=== PATIENT | male | born 1955 | race Caucasian/White ===

== ENCOUNTER 2018-05-05 09:24 | Outpatient (CLI) | payer OTHER, SELFPAY ==
[2018-05-05] VITALS (9 sets, daily range): BP systolic 119–150; BP diastolic 72–89; PULSE 66–76; RESP 16–18; TEMP 36.4; O2SAT 95–98
--- NOTE | 2018-05-05 09:28 | DI.RAD.S_ITS ---
PROCEDURE: PAIN L/S FACET INJ/BLK 1ST BREN COMPARISON: None. INDICATIONS: SPONDYLOSIS FINDINGS: 6 intraoperative fluoroscopy images demonstrate needle placement in the area of left and right L3-L4 facet joints. There is surgical fusion at L4-L5-S1. IMPRESSION: Fluoroscopy for pain management. Dictated by: Severiano Chen M.D. on 05/05/2018 at 10:41 Approved by: Severiano Chen M.D. on 05/05/2018 at 10:44
[2018-05-05] MEDS: MIDAZOLAM 5 MG/5 ML VIAL IV (10:10)
[2018-05-05] MEDS: LIDOCAINE 1% 20 ML INJ 10 ML INJ (10:14)
[2018-05-05] MEDS: BUPIVACAINE 0.5% (PF) VIAL 2 ML INJ (10:15)
[2018-05-05] MEDS: IOPAMIDOL 15 ML VIAL 3 ML INJ (10:15)
[2018-05-05] MEDS: BETAMETHASONE 30 MG/5 ML MDV 12 MG INJ (10:15)
--- NOTE | 2018-05-05 10:18 | PC.NURSE ---
ASSISTING PT OFF TABLE AND TRANSPORTING PT TO POST PROC AREA IN STABLE CONDITION
--- NOTE | 2018-05-05 10:24 | P.PCN_ITS ---
Procedures Date/Time Date of procedure: 05/05/18 Time of procedure: 10:22 General Procedure description: PREOP DIAGNOSIS 1. FACET ARTHROPATHY 2. AXIAL LBP 3. MULTILEVEL DDD POST OP DIAGNOSIS 1. FACET ARTHROPATHY 2. AXIAL LBP 3. MULTILEVEL DDD PROCEDURES 1. FLUORSCOPICALLY GUIDED CONTRAST CONTROLLED FACET JOINT INJECTIONS BILATERAL L3/4, L4/5 PHYSICIAN: Josiah Ybarra DO INDICATIONS: Sami is referred for treatment of Axial LBP s/p lumbar fusion. FINDINGS Multilevel Facet Arthropathy with Clinically significant axial LBP DESCRIPTION OF PROCEDURE Fluoroscopically guided, contrast-controlled bilateral L3/4 facet joint injections. Following denial of allergy and review of potential side effects and complications, including, but not necessarily limited to, infection, allergic reaction, local tissue breakdown, stroke, temporary or permanent nerve injury, paralysis, and possible , the patient indicated that the patient understood and agreed to proceed. An informed consent document was signed by the patient, witnessed by a nurse, and placed in the patient's chart. Additionally, other treatment options including medications, modalities, and physical therapy were reviewed with the patient. After review of previous anaesthesic history and IV conscious sedation the patient was deemed safe to proceed with todays procedure with IV conscious sedation as ASA class II designation. Safety time-out was performed to confirm patient ID, procedure to be performed and site of procedure. IV sedation was accomplished with a combination of 3mg of Versed was administered by the RN after DO order, titrated to patient comfort during the course of the procedure while the patient remained responsive to all verbal commands. In the prone position, following sterile prep and drape of the lumbar region, the posterior aspect of the L3/4 facet joints were identified fluoroscopically. The skin was anesthetized via a 25-gauge 1.5-inch needle with 1% lidocaine solution into the corresponding facet joints. At this point, a 22-gauge 3.5- inch spinal needle was atraumatically introduced and advanced under fluoroscopic guidance into the corresponding facet joints. Following negative aspiration, injections of approximately 0.2-cc of Isovue 200 confirmed interarticular placement without vascular uptake. The identical procedure was then performed at the L3/4 facet joints on the left. Radiological data, including multiple fluoroscopic views of the lumbosacral spine, reveal a spinal needle at the L3/4 facet joints bilaterally. Subsequent views show flow of contrast material both superiorly and inferiorly within the joint space without vascular or intrathecal uptake. At this point, a total of 0.5 cc including a mixture of 0.25 cc Marcaine and 0.25 cc betamethasone was injected without complication into each of the corresponding facet joints. The patient tolerated the procedure well without signs or symptoms of complications prior to transfer to the recovery area continued monitoring without incident. The patient was then transferred to the recovery area where they were observed for an appropriate period of time after the injection. The patient reported a VAS score of 7 prior to the procedure and a post-procedure VAS of 0. Total Fluoroscopy Time: 20.3 seconds Total Conscious Sedation Time: 24min POST OP INSTRUCTIONS The patient was provided a Pain Log to continue to record their response to the target-specific procedure prior to follow-up visit with their referring physician. Additionally, specific post-injection care instructions and a contact number to our office were provided if concerns arise regarding possible complications associated with the procedure are suspected. Josiah Ybarra, Complications: none
--- NOTE | 2018-05-05 11:03 | PC.NURSE ---
pt returned via wheelchair from post procedure, awake and alert, able to move from W/C to chair on own, resumed monitoring from Silvia COLINDRES.
--- NOTE | 2018-05-06 16:34 | PC.NURSE ---
FOLLOW UP CALL MADE. PT STATES MY BACK FEELS GREAT. DENIES QUESTIONS/CONCERNS. I ASKED HIM TO CONTINUE TO DOCUMENT PAIN ON HIS PAIN LOG AND REMINDED HIM THAT THE CLINIC NUMBER IS ON THE BACK OF THE PAIN LOG, SHOULD QUESTIONS/CONCERNS ARISE. HE VERBALIZED UNDERSTANDING OF INSTRUCTIONS.
== END 2018-05-05 11:03 ==
LOC: RAD 09:26
PROVIDERS: Visit Provider Physical Medicine & Rehabilitation
DX: M47.816 Spondylosis without myelopathy or radiculopathy, lumbar region (principal); M47.817 Spondylosis without myelopathy or radiculopathy, lumbosacral region; M54.5 Low back pain; M51.36 Other intervertebral disc degeneration, lumbar region; Z98.1 Arthrodesis status
CPT/HCPCS: 64493; 99152; J0702; J2250

== ENCOUNTER 2018-07-29 09:49 | Outpatient (CLI) | payer OTHER, SELFPAY ==
[2018-07-29] VITALS (10 sets, daily range): BP systolic 111–160; BP diastolic 52–82; PULSE 57–66; RESP 16–18; TEMP 36.5; O2SAT 97–100
--- NOTE | 2018-07-29 09:51 | DI.RAD.S_ITS ---
PROCEDURE: PAIN L/S MED/LAT N RFA BILAT INDICATIONS: SPONDYLOSIS FINDINGS: Fluoroscopic spot filming was performed to verify placement of spinal needles at the bilateral L3 and 4 level(s), as labeled on the films. Appropriate location(s) of the needle tip(s) was confirmed by injection of iodinated contrast. IMPRESSION: Bilateral L3 and L4 needle tip positioning for medial branch block procedures (4 total). Dictated by: Jaquan Uriarte M.D. on 07/29/2018 at 14:22 Approved by: Jaquan Uriarte M.D. on 07/29/2018 at 14:23
[2018-07-29] MEDS: MIDAZOLAM 5 MG/5 ML VIAL IV (11:21)
[2018-07-29] MEDS: fentaNYL 100 MCG/2 ML INJ 50 MCG IV (11:21)
[2018-07-29] MEDS: BETAMETHASONE 30 MG/5 ML MDV 12 MG INJ (11:40)
[2018-07-29] MEDS: LIDOCAINE 1% 20 ML INJ 10 ML INJ (11:41)
[2018-07-29] MEDS: BUPIVACAINE 0.5% (PF) VIAL 2 ML INJ (11:41)
--- NOTE | 2018-07-29 11:53 | PC.NURSE ---
ASSISTING PT OFF TABLE AND TRANSPORTING TO POST PROC AREA IN STABLE CONDITION
--- NOTE | 2018-07-29 12:02 | P.PCN_ITS ---
Procedures Date/Time Date of procedure: 07/29/18 Time of procedure: 12:01 General Procedure description: PREOP DIAGNOSIS 1. RECALCITRANT FACET ARTHROPATHY, POST OP DIAGNOSIS 1. RECALCITRANT FACET ARTHROPATHY PROCEDURES 1. BILATERAL L3, L4 MEDIAL BRANCH RADIOFREQUENCY NEUROTOMY PHYSICIAN: Josiah Ybarra DO INDICATIONS: Sami is referred for treatment of facet arthropathy. DESCRIPTION OF PROCEDURE Bilateral L3, L4 medial branch radiofrequency neurotomy The patient is well known to this clinic having undergone previous facet injections with good but temporary relief. The patient has experienced appropriate, concordant relief with previous facet and median branch blocks but the patient's pain has been recalcitrant to further conservative measures. Therefore, based upon the patient's relief and persistent symptoms, the patient is considered an appropriate candidate for facet rhizotomy. All of the patient's questions regarding the risks versus benefits of the procedure, including, but not limited to, bleeding, infection, temporary as well as lasting nerve injury, paralysis, stroke, and , as well treatment alternatives were answered to satisfaction. After obtaining informed consent, denial of pertinent drug allergies, as well as being made aware of the potential risks of bleeding, infection, spinal cord trauma, paralysis, temporary and permanent nerve damage, seizure, stroke, and possible , the patient was brought to the fluoroscopy suite and positioned prone on the fluoroscopy table. The lumbar region was prepped with Betadine and covered with a fenestrated drape in the usual sterile fashion. Appropriate monitors applied including pulse oximeter, pulse, and blood pressure for regular monitoring throughout the procedure. After review of previous anaesthesic history and IV conscious sedation the patient was deemed safe to proceed with todays procedure with IV conscious sedation as ASA class II designation. Safety time-out was performed to confirm patient ID, procedure to be performed and site of procedure. IV sedation was accomplished with a combination of 3mg of Versed and 50mcg of Fentanyl administered by the RN after DO order, titrated to patient comfort during the course of the procedure while the patient remained responsive to all verbal commands. After local infiltration using 1% lidocaine, under fluoroscopic guidance, a 10- cm RF insulated needle with a 10-mm active tip was positioned parallel to the junction of the right the superior articulating process where the L3 medial branch resides. Needle placement was confirmed with sensory stimulation at 50 Hz, with motor stimulation of .5v on the right which produced local stimulation without radicular component. The stimulation was then increased to 1.5v with, once again, only local multifidus stimulation without radicular component. This was then followed by two discreet lesions performed at 80 degrees Celsius for 90 seconds each. The needle was then removed and the identical procedure was performed along the length of the right L4 medial branch with motor stimulation at .7v on the right. The identical procedures were repeated on the left. The patient tolerated the procedure well without signs or symptoms of complications prior to transfer to the recovery area continued monitoring without incident. The patient was then transferred to the recovery area where they were observed for an appropriate period of time after the injection. The patient reported a VAS score of 9 prior to the procedure and a post-procedure VAS of 0. Total Fluoroscopy Time: 22.7 seconds Total Conscious Sedation Time: 34min POST OP INSTRUCTIONS The patient was provided a Pain Log to continue to record the patient's response to the target-specific procedure prior to the patient's follow-up visit with the referring physician. Additionally, specific post-injection care instructions and a contact number to our office were provided if concerns arise regarding possible complications associated with the procedure are suspected. Josiah Ybarra, Complications: none
--- NOTE | 2018-07-29 12:08 | PC.NURSE ---
pt returned post procedure awake and alert. Pt able to move from W/C to chair with standby assist. Resumed monitoring from Silvia COLINDRES.
== END 2018-07-29 12:32 ==
LOC: RAD 09:50
PROVIDERS: Visit Provider Physical Medicine & Rehabilitation
DX: M47.817 Spondylosis without myelopathy or radiculopathy, lumbosacral region (principal); M47.816 Spondylosis without myelopathy or radiculopathy, lumbar region; M48.061 Spinal stenosis, lumbar region without neurogenic claudication; Z98.1 Arthrodesis status
CPT/HCPCS: 64635; 99152; 99153; J0702; J2250; J3010

== ENCOUNTER → 2018-09-23 08:57 | Outpatient (CLI) | payer OTHER, SELFPAY ==
--- NOTE | 2018-09-23 08:58 | DI.MRI.S_ITS ---
PROCEDURE: MR LUMBAR SPINE WO CON INDICATIONS: lumbar spine pain TECHNIQUE: Noncontrast sagittal T1 spin echo and T2 fast echo, sagittal STIR, axial T1 and T2 fast spin echo through the lumbar spine. In cases with scoliosis, additional coronal T2 fast spin echo may be performed. COMPARISON: None. FINDINGS: Image quality: The lower lumbar spine is obscured by susceptibility artifact. Alignment and Curvature: There is minimal retrolisthesis seen at the L2-L3 level. Mild retrolisthesis is seen at L3-L4. Bone Marrow: Marrow is of normal overall signal. No acute vertebral body compression fractures. Spinal Cord: Conus medullaris terminates at the L1 level. Visualized cord demonstrates normal signal and size. Paraspinous Soft Tissues: No paravertebral masses. Postoperative changes are seen, with bilateral pedicle screws at the L4, L5, and S1 levels. Vertical fixation rods are seen. There is associated susceptibility artifact. T12-L1: Normal appearance. L1-L2: The disc height is well-preserved. Loss of disc signal is seen at this level. Mild to moderate generalized disc bulge is seen. Moderate facet joint hypertrophy is seen. Mild central canal narrowing is seen. L2-L3: The disc height is well-preserved. Loss of disc signal is seen at this level. Moderate generalized disc bulge is seen. Mild to moderate facet hypertrophy is seen. Moderate bilateral neural foraminal narrowing is seen. Moderate central canal narrowing is seen. L3-L4: At least moderate loss of disc height and disc signal are seen. Moderate disc bulge is seen. There is moderate to severe bilateral neural foraminal narrowing seen. There is a degree of compression seen upon the exiting nerve roots. Moderate to severe central canal narrowing is seen. L4-L5: Moderate to severe loss of disc height and disc signal are seen. At least moderate disc bulge is seen. There is moderate to severe left-sided and mild right-sided neural foraminal narrowing. Mild central canal narrowing is seen. L5-S1: Moderate to severe loss of disc height is seen. [id number] disc bulge is seen. There is likely moderate bilateral neural foraminal narrowing. Mild central canal narrowing is seen. IMPRESSION: Lower lumbar spine postoperative change, with associated susceptibility artifact, limiting evaluation Multiple levels of lumbar spine degenerative change are seen, which are most prominent at L3-L4. Dictated by: Kalin Phelps M.D. on 09/23/2018 at 8:51 Approved by: Kalin Phelps M.D. on 09/23/2018 at 8:58
== END ==
PROVIDERS: Visit Provider Physical Medicine & Rehabilitation
DX: M54.5 Low back pain (principal); M47.816 Spondylosis without myelopathy or radiculopathy, lumbar region; M47.817 Spondylosis without myelopathy or radiculopathy, lumbosacral region; M48.061 Spinal stenosis, lumbar region without neurogenic claudication; M48.07 Spinal stenosis, lumbosacral region
CPT/HCPCS: 72148

== ENCOUNTER 2018-10-01 12:41 | Outpatient (CLI) | payer OTHER, SELFPAY ==
[2018-10-01] VITALS (9 sets, daily range): BP systolic 133–157; BP diastolic 80–95; PULSE 57–68; RESP 16; TEMP 36.3; O2SAT 96–98
--- NOTE | 2018-10-01 12:43 | DI.RAD.S_ITS ---
PROCEDURE: PAIN L/S TRANSFORAMINAL INJECT INDICATIONS: SPONDYLOSIS FINDINGS: Fluoroscopic spot filming was performed to verify placement of spinal needles at the L3-L4 level(s), as labeled on the films. Appropriate location(s) of the needle tip(s) was confirmed by injection of iodinated contrast. Dictated by: Gilberto Skelton M.D. on 10/02/2018 at 10:12 Approved by: Gilberto Skelton M.D. on 10/02/2018 at 10:13
[2018-10-01] MEDS: fentaNYL 100 MCG/2 ML INJ 50 MCG IV (14:10)
[2018-10-01] MEDS: MIDAZOLAM 5 MG/5 ML VIAL IV (14:10)
--- NOTE | 2018-10-01 14:16 | PC.NURSE ---
pt tolerated procedure well. Pt able to get off table with standby assist. Transferred pt via wheelchair to pre procedure room awake and alert for continued monitoring with Silvia COLINDRES.
--- NOTE | 2018-10-01 14:24 | P.PCN_ITS ---
Procedures Date/Time Date of procedure: 10/01/18 Time of procedure: 14:22 General Procedure description: POST OP DIAGNOSIS 1. HNP WITH RADICULAR FEATURES, 2. MULTILEVEL CENTRAL STENOSIS, PROCEDURES 1. FLUORSCOPICALLY GUIDED CONTRAST CONTROLLED INTERLAMINAR EPIDURAL STEROID INJECTION - L3/4 PHYSICIAN: Josiah Ybarra, DO INDICATIONS Sami is referred for treatment of HNP with Foraminal Stenosis L>R LE symptoms. FINDINGS Multilevel Central Spinal Stenosis with Nerve Root Compression DESCRIPTION OF PROCEDURE Fluoroscopically guided, contrast-controlled L3/4 translaminar epidural steroid injection. Following review of allergy and review of potential side effects and complications, including, but not necessarily limited to, infection, allergic reaction, local tissue breakdown, temporary as well as permanent nerve injury, paralysis, stroke and possible , the patient indicated that the patient understood and agreed to proceed. An informed consent document was signed by the patient, witnessed by a nurse, and placed in the patient's chart. Additionally, other treatment options including modalities, medications, and physical therapy were reviewed with the patient. After review of previous anaesthesic history and IV conscious sedation the patient was deemed safe to proceed with todays procedure with IV conscious sedation as ASA class II designation. Safety time-out was performed to confirm patient ID, procedure to be performed and site of procedure. IV sedation was accomplished with a combination of 3mg of Versed and 50mcg of Fentanyl was administered by the RN after DO order, titrated to patient comfort during the course of the procedure while the patient remained responsive to all verbal commands. In the prone position, following sterile prep and drape of the lumbar region, the L3/4 translaminar space was identified fluoroscopically. The skin was anesthetized via a 25-gauge, 1.5-inch needle with 1% lidocaine solution. At this point, a 22-gauge short bevel spinal needle was atraumatically introduced and advanced under fluoroscopic guidance into the region of the L3/4 translaminar space. Depth was confirmed on lateral view. Radiological data, including multiple fluoroscopic views of the lumbar spine, reveal a spinal needle at the L3/4 translaminar space. Lateral views then show placement of the needle in the epidural space. Subsequent views show contrast material flowing superiorly and inferiorly in the epidural space. No vascular or intrathecal uptake is observed. At this point, using loss of resistance technique with saline and air, the epidural space was entered. This was confirmed following negative aspiration with injection of approximately 1.5 cc of Isovue 200, showing excellent epidural flow without vascular or intrathecal uptake. At this point, 1 cc of 1% lid ocaine solution combined with 3cc or 18mg of dexamethasone was injected without incident. The patient tolerated the procedure well without signs or symptoms of complications prior to transfer to the recovery area continued monitoring without incident. The patient was then transferred to the recovery area where they were observed for an appropriate period of time after the injection. The patient reported a VAS score of 6 prior to the procedure and a post- procedure VAS of 0. Total Fluoroscopy Time: 11.8 seconds Total Conscious Sedation Time: 24min POST OP INSTRUCTIONS The patient was provided a Pain Log to continue to record their response to the target-specific procedure prior to follow-up visit with their referring physician. Additionally, specific post-injection care instructions and a contact number to our office were provided if concerns arise regarding possible complications associated with the procedure are suspected. Josiah Ybarra, Complications: none
[2018-10-01] MEDS: IOPAMIDOL 15 ML VIAL 3 ML INJ (14:26)
--- NOTE | 2018-10-01 14:26 | PC.NURSE ---
ACCEPTED CARE OF PT IN POST PROC AREA IN STABLE CONDITION
[2018-10-01] MEDS: BETAMETHASONE 30 MG/5 ML MDV 12 MG INJ (14:27)
[2018-10-01] MEDS: BUPIVACAINE 0.25% (PF) VIAL 2 ML INJ (14:31)
== END 2018-10-01 14:49 | disposition home or self-care (01) ==
LOC: RAD 12:42
PROVIDERS: Visit Provider Physical Medicine & Rehabilitation
DX: M51.16 Intervertebral disc disorders with radiculopathy, lumbar region (principal); M48.061 Spinal stenosis, lumbar region without neurogenic claudication
CPT/HCPCS: 64483; 99152; J0702; J2250; J3010

== ENCOUNTER 2019-06-21 09:03 | Outpatient (CLI) | payer MEDICARE, SELFPAY ==
[2019-06-21] VITALS (8 sets, daily range): BP systolic 127–156; BP diastolic 69–94; PULSE 52–66; RESP 16–17; TEMP 36.4; O2SAT 96–98
--- NOTE | 2019-06-21 09:06 | DI.RAD.S_ITS ---
PROCEDURE: PAIN L/S FACET INJ/BLK 1ST BREN COMPARISON: [facility], , PAIN L/S FACET INJ/BLK 1ST BREN, 05/05/2018, 10:11. INDICATIONS: SPONDYLOSIS FINDINGS: Fluoroscopic spot filming was performed to verify placement of spinal needles at the L2-L3 level(s), as labeled on the films. Appropriate location(s) of the needle tip(s) was confirmed by injection of iodinated contrast. As: Dictated by: Gilberto Skelton M.D. on 06/21/2019 at 13:50 Approved by: Gilberto Skelton M.D. on 06/21/2019 at 13:51
[2019-06-21] MEDS: MIDAZOLAM 5 MG/5 ML VIAL IV (10:42)
[2019-06-21] MEDS: fentaNYL 100 MCG/2 ML INJ 50 MCG IV (10:44)
[2019-06-21] MEDS: BUPIVACAINE 0.5% (PF) VIAL 2 ML INJ (10:46)
[2019-06-21] MEDS: IOPAMIDOL 15 ML VIAL 3 ML INJ (10:46)
[2019-06-21] MEDS: BETAMETHASONE 30 MG/5 ML MDV 12 MG INJ (10:46)
--- NOTE | 2019-06-21 10:50 | PC.NURSE ---
ASSISTING PT OFF TABLE AND TRANSPORTING TO POST PROC AREA IN STABLE CONDITION. PASSING RN CARE OF PT OFF TO NOAH Avery RN.
--- NOTE | 2019-06-21 10:52 | P.PCN_ITS ---
Procedures Date/Time Date of procedure: 06/21/19 Time of procedure: 10:53 General Procedure description: PREOP DIAGNOSIS 1. FACET ARTHROPATHY 2. AXIAL LBP 3. MULTILEVEL DDD POST OP DIAGNOSIS 1. FACET ARTHROPATHY 2. AXIAL LBP 3. MULTILEVEL DDD PROCEDURES 1. FLUORSCOPICALLY GUIDED CONTRAST CONTROLLED FACET JOINT INJECTIONS BILATERAL L2/3 PHYSICIAN: Josiah Ybarra DO INDICATIONS: Sami is referred by Dr. Hickey for treatment of Axial LBP FINDINGS Multilevel Facet Arthropathy with Clinically significant axial LBP DESCRIPTION OF PROCEDURE Fluoroscopically guided, contrast-controlled bilateral L2/3 facet joint injections. Following review of allergy and review of potential side effects and complications, including, but not necessarily limited to, infection, allergic reaction, local tissue breakdown, stroke, temporary or permanent nerve injury, paralysis, and possible , the patient indicated that the patient understood and agreed to proceed. An informed consent document was signed by the patient, witnessed by a nurse, and placed in the patient's chart. Additionally, other treatment options including medications, modalities, and physical therapy were reviewed with the patient. After review of previous anaesthesic history and IV conscious sedation the patient was deemed safe to proceed with todays procedure with IV conscious sedation as ASA class II designation. Safety time-out was performed to confirm patient ID, procedure to be performed and site of procedure. IV sedation was accomplished with a combination of 2mg of Versed and 50mcg of Fentanyl was administered by the RN after DO order, titrated to patient comfort during the course of the procedure while the patient remained responsive to all verbal commands. In the prone position, following sterile prep and drape of the lumbar region, t he posterior aspect of the L2/3 facet joints were identified fluoroscopically. The skin was anesthetized via a 25-gauge 1.5-inch needle with 1% lidocaine solution into the corresponding facet joints. At this point, a 22-gauge 3.5- inch spinal needle was atraumatically introduced and advanced under fluoroscopic guidance into the corresponding facet joints. Following negative aspiration, injections of approximately 0.2-cc of Isovue 200 confirmed interarticular placement without vascular uptake. The identical procedure was then performed at the L2/3 facet joints on the left. Radiological data, including multiple fluoroscopic views of the lumbosacral spine, reveal a spinal needle at the L2/3 facet joints bilaterally. Subsequent views show flow of contrast material both superiorly and inferiorly within the joint space without vascular or intrathecal uptake. At this point, a total of 0.5cc including a mixture of 0.25cc Marcaine and 0.25cc betamethasone was injected without complication into each of the corresponding facet joints. The patient tolerated the procedure well without signs or symptoms of complications prior to transfer to the recovery area continued monitoring with out incident. The patient was then transferred to the recovery area where they were observed for an appropriate period of time after the injection. The patient reported a VAS score of 7 prior to the procedure and a post-procedure VAS of 0. Total Fluoroscopy Time: 11 seconds Total Conscious Sedation Time: 24min POST OP INSTRUCTIONS The patient was provided a Pain Log to continue to record their response to the target-specific procedure prior to follow-up visit with their referring physician. Additionally, specific post-injection care instructions and a contact number to our office were provided if concerns arise regarding possible complications associated with the procedure are suspected. Josiah Ybarra, Complications: none
--- NOTE | 2019-06-21 10:57 | PC.NURSE ---
1100: Received patient post procedure via WC by Silvia COLINDRES. Awake, alert, and pleasant. VSS upon arrival, up out of WC to chair, steadily.
--- NOTE | 2019-06-22 11:58 | PC.NURSE ---
FOLLOW UP CALL MADE. PT STATED I FEEL GREAT. DENIED QUESTIONS/CONCERNS. REMINDED PT TO CONTINUE WITH PAIN LOG AND OF CLINIC NUMBER OF BACK IF HE NEEDS TO CONTACT US BEFORE HIS FOLLOW UP. PT VERBALIZED UNDERSTANDING.
== END 2019-06-21 11:15 | disposition home or self-care (01) ==
LOC: RAD 09:05
PROVIDERS: PCP Family Medicine; Referring Provider Family Medicine; Visit Provider Physical Medicine & Rehabilitation
DX: M47.816 Spondylosis without myelopathy or radiculopathy, lumbar region (principal); M51.36 Other intervertebral disc degeneration, lumbar region; M54.5 Low back pain
CPT/HCPCS: 64493; 64494; 99152; J0702; J2250; J3010

== ENCOUNTER → 2019-10-09 08:47 | Outpatient (CLI) | payer MEDICARE, SELFPAY ==
[2019-10-10 10:36] LABS: COVID19 Sendout Not Detected (Not Detect)
== END ==
PROVIDERS: PCP Family Medicine; Visit Provider Physician Assistant
DX: Z01.812 Encounter for preprocedural laboratory examination (principal)
CPT/HCPCS: 87635

== ENCOUNTER 2019-10-12 06:52 | Outpatient (CLI) | payer MEDICARE, SELFPAY ==
[2019-10-12] VITALS (12 sets, daily range): BP systolic 143–164; BP diastolic 78–101; PULSE 55–86; RESP 15–18; TEMP 36.1; O2SAT 95–100
--- NOTE | 2019-10-12 06:53 | DI.RAD.S_ITS ---
PROCEDURE: PAIN L/S MED/LAT N RFA BILAT INDICATIONS: SPONDYLOSIS FINDINGS: Fluoroscopic spot filming was performed to verify placement of spinal needles at the L2, L3, L4 level(s), as labeled on the films. Appropriate location(s) of the needle tip(s) was confirmed by injection of iodinated contrast. Dictated by: Gilberto Skelton M.D. on 10/13/2019 at 8:45 Approved by: Gilberto Skelton M.D. on 10/13/2019 at 8:46
[2019-10-12] MEDS: MIDAZOLAM 5 MG/5 ML VIAL IV (08:47)
[2019-10-12] MEDS: fentaNYL 100 MCG/2 ML INJ 50 MCG IV (08:49)
[2019-10-12] MEDS: BUPIVACAINE 0.5% (PF) VIAL 5 ML INJ (08:54)
[2019-10-12] MEDS: LIDOCAINE 1% 20 ML 10 ML INJ (08:57)
--- NOTE | 2019-10-12 09:30 | P.PCN_ITS ---
Procedures Date/Time Date of procedure: 10/12/19 Time of procedure: 09:30 General Procedure description: PREOP DIAGNOSIS 1. RECALCITRANT FACET ARTHROPATHY POST OP DIAGNOSIS 1. RECALCITRANT FACET ARTHROPATHY PROCEDURES 1. BILATERAL L2, L3, L4 MEDIAL BRANCH RADIOFREQUENCY NEUROTOMY PHYSICIAN: Josiah Ybarra DO INDICATIONS: Sami is referred by Dr. Hickey for treatment of facet arthropathy. DESCRIPTION OF PROCEDURE Bilateral L2, L3, L4 medial branch radiofrequency neurotomy The patient is well known to this clinic having undergone previous facet injections with good but temporary relief. The patient has experienced appropr iate, concordant relief with previous facet and median branch blocks but the patient's pain has been recalcitrant to further conservative measures. Therefore, based upon the patient's relief and persistent symptoms, the patient is considered an appropriate candidate for facet rhizotomy. All of the patient's questions regarding the risks versus benefits of the procedure, including, but not limited to, bleeding, infection, temporary as well as lasting nerve injury, paralysis, stroke, and , as well treatment alternatives were answered to satisfaction. After obtaining informed consent, denial of pertinent drug allergies, as well as being made aware of the potential risks of bleeding, infection, spinal cord trauma, paralysis, temporary and permanent nerve damage, seizure, stroke, and possible , the patient was brought to the fluoroscopy suite and positioned prone on the fluoroscopy table. The lumbar region was prepped with Betadine and covered with a fenestrated drape in the usual sterile fashion. Appropriate monitors applied including pulse oximeter, pulse, and blood pressure for regular monitoring throughout the procedure. After review of previous anaesthesic history and IV conscious sedation the patient was deemed safe to proceed with todays procedure with IV conscious sedation as ASA class II designation. Safety time-out was performed to confirm patient ID, procedure to be performed and site of procedure. IV sedation was accomplished with a combination of 2mg of Versed and 50mcg of Fentanyl administered by the RN after DO order, titrated to patient comfort during the course of the procedure while the patient remained responsive to all verbal commands. After local infiltration using 1% lidocaine, under fluoroscopic guidance, a 10- cm RF insulated needle with a 10-mm active tip was positioned parallel to the junction of the right the superior articulating process where the L4 medial branch resides. Needle placement was confirmed with motor stimulation of .5v on the right which produced local stimulation without radicular component. The stimulation was then increased to 1.5v with, once again, only local multifidus stimulation without radicular component.The needle was then removed and the identical procedure was performed along the length of the right L3 medial branch with motor stimulation at .7v on the right. The identical procedure was once again performed along the length of the right L2 and medial branch with motor stimulation of .5v on the right. The medial branches were then anesthetised with 0.5% marcaine. This was then followed by two discreet lesions performed at 80 degrees Celsius for 90 seconds each. The identical procedures were repeated on the left. The patient tolerated the procedure well without signs or symptoms of complications prior to transfer to the recovery area continued monitoring without incident. The patient was then transferred to the recovery area where they were observed for an appropriate period of time after the injection. The patient reported a VAS score of 7 prior to the procedure and a post-procedure VAS of 0. Total Fluoroscopy Time: 16 seconds Total Conscious Sedation Time: 45min POST OP INSTRUCTIONS The patient was provided a Pain Log to continue to record the patient's response to the target-specific procedure prior to the patient's follow-up visit with the referring physician. Additionally, specific post-injection care instructions and a contact number to our office were provided if concerns arise regarding possible complications associated with the procedure are suspected. Josiah Ybarra DO Complications: none
--- NOTE | 2019-10-12 10:00 | PC.NURSE ---
0929:Pt returned to pre proc room via wc, transferred from wc to chair easily, monitoring resumed by this RN
== END 2019-10-12 10:00 | disposition home or self-care (01) ==
LOC: RAD 06:53
PROVIDERS: PCP Family Medicine; Referring Provider Family Medicine; Visit Provider Physical Medicine & Rehabilitation
DX: M47.816 Spondylosis without myelopathy or radiculopathy, lumbar region (principal)
CPT/HCPCS: 64635; 64636; 99152; 99153; J2250; J3010

== ENCOUNTER → 2021-01-02 14:52 | Outpatient (CLI) | payer OTHER, SELFPAY | PROVIDERS: PCP Family Medicine; Referring Provider Physical Medicine & Rehabilitation; Visit Provider Family Medicine | DX: M54.9 Dorsalgia, unspecified (principal); Z98.1 Arthrodesis status ==

== ENCOUNTER → 2021-01-02 15:01 | Outpatient (CLI) | payer MEDICARE, SELFPAY ==
--- NOTE | 2021-01-02 15:03 | DI.RAD.S_ITS ---
PROCEDURE: XR LUMBAR SPINE MIN 4V INDICATIONS: BACK PAIN TECHNIQUE: 5 views of the lumbar spine were acquired, including bilateral oblique views. COMPARISON: None. FINDINGS: Bones: There are multilevel degenerative changes. L4, L5, S1 pedicular screw and clarice fixation with discectomy is intact with no hardware fracture. Disc space narrowing and endplate degenerative changes at L3-4. Anterior osteophytes are present at multiple levels. The sacroiliac joints are normal. Both hips have mild degenerative changes. Soft tissues: Overlying bowel gas pattern is normal. No suspicious soft tissue calcifications. Oblique images: No pars defects. IMPRESSION: 1. Postoperative changes of fixation spanning from L4 through S1. 2. Disc disease and facet arthrosis at L3-4. Dictated by: Anjum Villalba M.D. on 01/02/2021 at 16:12 Approved by: Anjum Villalba M.D. on 01/02/2021 at 16:15
== END ==
PROVIDERS: PCP Family Medicine; Referring Provider Physical Medicine & Rehabilitation; Visit Provider Physical Medicine & Rehabilitation
DX: M47.816 Spondylosis without myelopathy or radiculopathy, lumbar region (principal); M51.16 Intervertebral disc disorders with radiculopathy, lumbar region; M51.26 Other intervertebral disc displacement, lumbar region; M51.36 Other intervertebral disc degeneration, lumbar region; M48.061 Spinal stenosis, lumbar region without neurogenic claudication
CPT/HCPCS: 72110

== ENCOUNTER → 2021-01-22 07:38 | Outpatient (CLI) | payer OTHER, SELFPAY ==
--- NOTE | 2021-01-22 07:39 | DI.MRI.S_ITS ---
PROCEDURE: MR LUMBAR SPINE WO CON INDICATIONS: Status post lumbar fusion L3-4 HNP TECHNIQUE: Noncontrast sagittal T1 spin echo and T2 fast echo, sagittal STIR, axial T1 and T2 fast spin echo through the lumbar spine. In cases with scoliosis, additional coronal T2 fast spin echo may be performed. COMPARISON: [facility], CR, XR LUMBAR SPINE MIN 4V, 01/02/2021, 15:03. [facility], MR, MR LUMBAR SPINE WO CON, 09/23/2018, 9:02. FINDINGS: Image quality: Excellent. Alignment and Curvature: There is normal bony alignment. Bone Marrow: Degenerative endplate changes noted throughout the exam particularly at L3-4 L4-5 and L5-S1. L4-5 and L5-S1 discectomy and fusion with clarice and screw instrumentation noted. Spinal Cord: Conus medullaris terminates at the L1 level. Visualized cord demonstrates normal signal and size. Paraspinous Soft Tissues: No paravertebral masses. T12-L1: Normal appearance. L1-L2: Normal appearance. L2-L3: Disc height is preserved. Mild circumferential disc bulge combines with mild hypertrophic facet joints result in moderate central and moderate bilateral foraminal stenosis L3-L4: Disc height loss and circumferential disc bulge with high-intensity zone in the posterior annulus combines with hypertrophic facet joints to result in moderate to severe central and bilateral foraminal stenosis. L4-L5: Discectomy and fusion. No central stenosis noted. Mild bilateral foraminal stenosis is largely obscured by susceptibility artifact. L5-S1: Discectomy and fusion. No central stenosis present. Pvbt-[id number]-[id number] foraminal stenosis greater on the left is largely obscured by susceptibility artifact IMPRESSION: 1. Moderate to severe central and bilateral foraminal at L3-4 is stable from the prior exam. 2. L4-5 and L5-S1 discectomy and fusion with posterior clarice and screw instrumentation, stable from the prior. Approved by: Driss Ervin M.D. on 01/22/2021 at 12:55
== END ==
PROVIDERS: PCP Family Medicine; Referring Provider Physical Medicine & Rehabilitation; Visit Provider Physical Medicine & Rehabilitation
DX: M51.26 Other intervertebral disc displacement, lumbar region (principal); M48.061 Spinal stenosis, lumbar region without neurogenic claudication; Z98.1 Arthrodesis status
CPT/HCPCS: 72148

== ENCOUNTER → 2021-02-27 12:45 | Outpatient (CLI) | payer OTHER, SELFPAY ==
[2021-02-27 14:52] LABS: COVID19 -Nasal RAPID Negative (Negative)
== END ==
PROVIDERS: PCP Family Medicine; Referring Provider Physical Medicine & Rehabilitation; Visit Provider Physical Medicine & Rehabilitation
DX: Z20.822 Contact with and (suspected) exposure to COVID-19 (principal)
CPT/HCPCS: 87635; C9803

== ENCOUNTER 2021-03-01 09:43 | Outpatient (CLI) | payer OTHER, SELFPAY ==
[2021-03-01] VITALS (9 sets, daily range): BP systolic 137–155; BP diastolic 75–95; PULSE 68–93; RESP 12–20; TEMP 36.7; O2SAT 96–99
--- NOTE | 2021-03-01 09:44 | DI.RAD.S_ITS ---
PROCEDURE: PAIN L INTERLAMINAR/CAUDAL INJ INDICATIONS: SPONDYLOSIS COMPARISON: [facility], CR, XR LUMBAR SPINE MIN 4V, 01/02/2021, 15:03. [facility], MR, MR LUMBAR SPINE WO CON, 01/22/2021, 8:15. FINDINGS: Fluoroscopic spot filming was performed to verify placement of a spinal needle at the L3-L4 level, as labeled on the films. Appropriate location of the needle tip was confirmed by injection of iodinated contrast. IMPRESSION: Intraprocedural examination within normal limits. Dictated by: Kalin Phelps M.D. on 03/01/2021 at 11:00 Approved by: Kalin Phelps M.D. on 03/01/2021 at 11:00
[2021-03-01] MEDS: fentaNYL 100 MCG/2 ML INJ 50 MCG IV (11:29)
[2021-03-01] MEDS: MIDAZOLAM 5 MG/5 ML VIAL IV (11:29)
[2021-03-01] MEDS: IOPAMIDOL 15 ML VIAL 3 ML INJ (11:32)
[2021-03-01] MEDS: BUPIVACAINE 0.25% (PF) VIAL 2 ML INJ (11:33)
[2021-03-01] MEDS: BETAMETHASONE 30 MG/5 ML MDV 12 MG INJ (11:34)
[2021-03-01] MEDS: DEXAMETHASONE 10 MG/ML VIAL 20 MG INJ (11:34)
--- NOTE | 2021-03-01 11:42 | P.PCN_ITS ---
Date/Time/Diagnoses Date of procedure: 03/01/21 Time of procedure: 11:43 Pre-procedure diagnosis: 1. HNP WITH RADICULAR FEATURES, 2. MULTILEVEL CENTRAL STENOSIS, Post-procedure diagnosis: same Procedure Notes Procedure: 1. FLUOROSCOPICALLY GUIDED CONTRAST CONTROLLED INTERLAMINAR EPIDURAL STEROID INJECTION - L3/4 Indications: Sami is referred by Dr. Grant for treatment of Bilateral Foraminal Stenosis L>R LE symptoms. Physician: Josiah Ybarra Total Fluoroscopy time (seconds): 6 Total sedation minutes: 8 Complications: none Procedure in detail & Post-procedure care: FINDINGS Multilevel Central Spinal Stenosis with Nerve Root Compression DESCRIPTION OF PROCEDURE Fluoroscopically guided, contrast-controlled L3/4 translaminar epidural steroid injection. Following review of allergy and review of potential side effects and complications, including, but not necessarily limited to, infection, allergic reaction, local tissue breakdown, temporary as well as permanent nerve injury, paralysis, stroke and possible , the patient indicated that the patient understood and agreed to proceed. An informed consent document was signed by the patient, witnessed by a nurse, and placed in the patient's chart. Additionally, other treatment options including modalities, medications, and physical therapy were reviewed with the patient. After review of previous anaesthesic history and IV conscious sedation the patient was deemed safe to proceed with today?s procedure with IV conscious sedation as ASA class II designation. Safety time-out was performed to confirm p atient ID, procedure to be performed and site of procedure. IV sedation was accomplished with a combination of 2mg of Versed and 50mcg of Fentanyl was administered by the RN after DO order, titrated to patient comfort during the course of the procedure while the patient remained responsive to all verbal commands. In the prone position, following sterile prep and drape of the lumbar region, the L3/4 translaminar space was identified fluoroscopically. The skin was anesthetized via a 25-gauge, 1.5-inch needle with 1% lidocaine solution. At this point, a 22-gauge short bevel spinal needle was atraumatically introduced and advanced under fluoroscopic guidance into the region of the L3/4 translaminar space. Depth was confirmed on lateral view. Radiological data, including multiple fluoroscopic views of the lumbar spine, reveal a spinal needle at the L3/4 translaminar space. Lateral views then show placement of the needle in the epidural space. Subsequent views show contrast material flowing superiorly and inferiorly in the epidural space. No vascular or intrathecal uptake is observed. At this point, using loss of resistance technique with saline and air, the epidural space was entered. This was confirmed following negative aspiration with injection of approximately 1.5 cc of Isovue 200, showing excellent epidural flow without vascular or intrathecal uptake. At this point, 1cc of 1% lidocaine solution combined with 4cc or 20mg of dexamethasone and 12mg of betamethasone was injected without incident. The patient tolerated the procedure well without signs or symptoms of complications prior to transfer to the recovery area continued monitoring without incident. The patient was then transferred to the recovery area where they were observed for an appropriate period of time after the injection. The patient reported a VAS score of 6 prior to the procedure and a post- procedure VAS of 0. POST OP INSTRUCTIONS The patient was provided a Pain Log to continue to record their response to the target-specific procedure prior to follow-up visit with their referring physician. Additionally, specific post-injection care instructions and a contact number to our office were provided if concerns arise regarding possible complications associated with the procedure are suspected.
== END 2021-03-01 12:07 | disposition home or self-care (01) ==
LOC: RAD 09:43
PROVIDERS: PCP Family Medicine; Referring Provider Physical Medicine & Rehabilitation; Visit Provider Physical Medicine & Rehabilitation
DX: M51.16 Intervertebral disc disorders with radiculopathy, lumbar region (principal); M48.061 Spinal stenosis, lumbar region without neurogenic claudication
CPT/HCPCS: 62323; J0702; J1100; J2250; J3010

== ENCOUNTER → 2021-04-20 10:21 | Outpatient (CLI) | payer OTHER, SELFPAY ==
--- NOTE | 2021-04-20 10:24 | DI.RAD.S_ITS ---
PROCEDURE: XR SHOULDER LT MIN 2V INDICATIONS: LEFT SHOULDER PAIN TECHNIQUE: 3 views of the shoulder were acquired. COMPARISON: [facility], [facility], XR SHOULDER 4V LEFT, 02/21/2020, 10:04. FINDINGS: Bones: No acute fractures or dislocations. No suspicious bony lesions. Visualized ribs appear intact. Moderate degenerative changes are seen in the acromioclavicular joint. There is mild spurring of the inferior glenoid. Soft tissues: No suspicious soft tissue calcifications. IMPRESSION: Moderate acromioclavicular joint osteoarthrosis and mild glenohumeral osteoarthrosis. No acute osseous abnormality. If the symptoms persist, consider cross sectional imaging such as MRI or CT for further assessment. Dictated by: Juanjose Rosas M.D. on 04/20/2021 at 12:22 Approved by: Juanjose Rosas M.D. on 04/20/2021 at 12:24
--- NOTE | 2021-04-20 11:03 | DI.RAD.S_ITS ---
PROCEDURE: XR SHOULDER RT MIN 2V INDICATIONS: RIGHT SHOULDER PAIN TECHNIQUE: 3 views of the shoulder were acquired. COMPARISON: [facility], CR, XR SHOULDER LT MIN 2V, 04/20/2021, 10:28. FINDINGS: Bones: No fractures or dislocations. Mild to moderate acromioclavicular joint and glenohumeral joint osteoarthritic changes are seen. No suspicious bony lesions. Visualized ribs appear intact. Soft tissues: No suspicious soft tissue calcifications. IMPRESSION: Mild to moderate right shoulder joint osteoarthritis. No fracture or dislocation. No gross soft tissue abnormality. Dictated by: Leeroy Burk M.D. on 04/20/2021 at 11:25 Approved by: Leeroy Burk M.D. on 04/20/2021 at 11:25
== END ==
PROVIDERS: PCP Family Medicine; Referring Provider Physical Medicine & Rehabilitation; Visit Provider Physical Medicine & Rehabilitation
DX: M19.011 Primary osteoarthritis, right shoulder (principal); M19.012 Primary osteoarthritis, left shoulder; M75.40 Impingement syndrome of unspecified shoulder; M47.816 Spondylosis without myelopathy or radiculopathy, lumbar region; M51.26 Other intervertebral disc displacement, lumbar region; Z98.1 Arthrodesis status
CPT/HCPCS: 20611; 73030; 99214; J0702

== ENCOUNTER → 2021-09-20 15:55 | Outpatient (CLI) | payer OTHER, SELFPAY ==
--- NOTE | 2021-09-20 15:57 | DI.RAD.S_ITS ---
PROCEDURE: XR KNEE LT 3V INDICATIONS: Progressive knee pain TECHNIQUE: Three views of the knee were acquired. COMPARISON: None. FINDINGS: Bones: No acute fractures or dislocations. No suspicious bony lesions. A suprapatellar enthesophyte is present. Soft tissues: No joint effusion. No suspicious soft tissue calcifications. IMPRESSION: No acute osseous abnormality. If the symptoms persist, consider cross sectional imaging such as MRI or CT for further assessment. Dictated by: Juanjose Rosas M.D. on 09/20/2021 at 16:45 Approved by: Juanjose Rosas M.D. on 09/20/2021 at 16:46
--- NOTE | 2021-09-20 15:57 | DI.RAD.S_ITS ---
PROCEDURE: XR KNEE RT 3V INDICATIONS: Progressive knee pain TECHNIQUE: 3 views of the knee were acquired. COMPARISON: None. FINDINGS: Bones: No acute fractures or dislocations. No suspicious bony lesions. Suprapatellar enthesophyte is present. Soft tissues: No joint effusion. Calcifications are seen in the lateral compartment joint space. IMPRESSION: 1. No acute osseous abnormality. If the symptoms persist, consider cross sectional imaging such as MRI or CT for further assessment. 2. Chondrocalcinosis. Differential diagnosis includes but is not limited to CPPD, hyperparathyroidism, and hemochromatosis. Dictated by: Juanjose Rosas M.D. on 09/20/2021 at 16:44 Approved by: Juanjose Rosas M.D. on 09/20/2021 at 16:45
== END ==
PROVIDERS: PCP Family Medicine; Referring Provider Physical Medicine & Rehabilitation; Visit Provider Physical Medicine & Rehabilitation
DX: M11.261 Other chondrocalcinosis, right knee (principal); M17.10 Unilateral primary osteoarthritis, unspecified knee; M19.011 Primary osteoarthritis, right shoulder; M19.012 Primary osteoarthritis, left shoulder; M17.0 Bilateral primary osteoarthritis of knee; M75.40 Impingement syndrome of unspecified shoulder; M51.16 Intervertebral disc disorders with radiculopathy, lumbar region; Z98.1 Arthrodesis status
CPT/HCPCS: 20611; 73562; 99215; J1040

== ENCOUNTER 2021-10-16 06:48 | Outpatient (CLI) | payer OTHER, SELFPAY ==
[2021-10-16] VITALS (8 sets, daily range): BP systolic 126–151; BP diastolic 70–85; PULSE 62–87; RESP 13–22; TEMP 36.4; O2SAT 96–100
--- NOTE | 2021-10-16 06:50 | DI.RAD.S_ITS ---
PROCEDURE: PAIN L INTERLAMINAR/CAUDAL INJ INDICATIONS: SPONDYLOSIS COMPARISON: None. FINDINGS: Fluoroscopic spot filming was performed to verify placement of spinal needles at the L5-S1 interlaminar space level(s), as labeled on the films. Appropriate location(s) of the needle tip(s) was confirmed by injection of iodinated contrast. IMPRESSION: [place] needle at the L5-S1 interlaminar space for translaminar epidural steroid injection. Dictated by: Arielle Garza MD, PhD on 10/16/2021 at 13:22 Approved by: Arielle Garza MD, PhD on 10/16/2021 at 13:23
[2021-10-16] MEDS: MIDAZOLAM 2 MG/2 ML VIAL IV (08:39)
[2021-10-16] MEDS: IOPAMIDOL 15 ML VIAL 3 ML INJ (08:46)
[2021-10-16] MEDS: BUPIVACAINE 0.25% (PF) VIAL 5 ML SUBCUT (08:47)
[2021-10-16] MEDS: DEXAMETHASONE 10 MG/ML VIAL 20 MG INJ (08:48)
[2021-10-16] MEDS: BETAMETHASONE 30 MG/5 ML MDV 12 MG IM (08:48)
[2021-10-16 08:51] LABS: COVID19 -Nasal RAPID Negative (Negative)
--- NOTE | 2021-10-16 08:53 | P.PCN_ITS ---
Date/Time/Diagnoses Date of procedure: 10/16/21 Time of procedure: 08:53 Pre-procedure diagnosis: 1. HNP WITH RADICULAR FEATURES, 2. MULTILEVEL CENTRAL STENOSIS, Post-procedure diagnosis: same Procedure Notes Procedure: 1. FLUOROSCOPICALLY GUIDED CONTRAST CONTROLLED INTERLAMINAR EPIDURAL STEROID INJECTION - L5/S1 Indications: Jared is referred by Dr. Grant for treatment of Bilateral Foraminal Stenosis L>R LE symptoms. Physician: Josiah Ybarra Total Fluoroscopy time (seconds): 6 Total sedation minutes: 11 Complications: none Procedure in detail & Post-procedure care: FINDINGS Multilevel Central Spinal Stenosis with Nerve Root Compression DESCRIPTION OF PROCEDURE Fluoroscopically guided, contrast-controlled L5/S1 translaminar epidural steroid injection. Following review of allergy and review of potential side effects and complications, including, but not necessarily limited to, infection, allergic reaction, local tissue breakdown, temporary as well as permanent nerve injury, paralysis, stroke and possible , the patient indicated that the patient understood and agreed to proceed. An informed consent document was signed by the patient, witnessed by a nurse, and placed in the patient's chart. Additionally, other treatment options including modalities, medications, and physical therapy were reviewed with the patient. After review of previous anaesthesic history and IV conscious sedation the patient was deemed safe to proceed with today?s procedure with IV conscious sedation as ASA class II designation. Safety time-out was performed to confirm patient ID, procedure to be performed and site of procedure. IV sedation was accomplished with a combination of 2mg of Versed administered by the RN after DO order, titrated to patient comfort during the course of the procedure while the patient remained responsive to all verbal commands. In the prone position, following sterile prep and drape of the lumbar region, the L5/S1 translaminar space was identified fluoroscopically. The skin was anesthetized via a 25-gauge, 1.5-inch needle with 1% lidocaine solution. At this point, a 22-gauge short bevel spinal needle was atraumatically introduced and advanced under fluoroscopic guidance into the region of the L5/S1 translaminar space. Depth was confirmed on lateral view. Radiological data, including multiple fluoroscopic views of the lumbar spine, reveal a spinal needle at the L5/S1 translaminar space. Lateral views then show placement of the needle in the epidural space. Subsequent views show contrast material flowing superiorly and inferiorly in the epidural space. No vascular or intrathecal uptake is observed. At this point, using loss of resistance technique with saline and air, the epidural space was entered. This was confirmed following negative aspiration with injection of approximately 1.5cc of Isovue 200, showing excellent epidural flow without vascular or intrathecal uptake. At this point, 1 cc of 1% lidoc paul solution combined with 3cc or 20mg of dexamethasone and 6mg of betamethasone was injected without incident. The patent tolerated the procedure without signs of symptoms of complications prior to transfer to the recovery area for further monitoring. The patient was then transferred to the recovery area where they were observed for an appropriate period of time after the injection. The patient reported a VAS score of 6 prior to the procedure and a post-procedure VAS of 0. POST OP INSTRUCTIONS The patient was provided a Pain Log to continue to record their response to the target-specific procedure prior to follow-up visit with their referring physician. Additionally, specific post-injection care instructions and a contact number to our office were provided if concerns arise regarding possible complications associated with the procedure are suspected.
== END 2021-10-16 09:15 | disposition home or self-care (01) ==
LOC: RAD 06:49
PROVIDERS: PCP Family Medicine; Referring Provider Physical Medicine & Rehabilitation; Visit Provider Physical Medicine & Rehabilitation
DX: M51.17 Intervertebral disc disorders with radiculopathy, lumbosacral region; M48.07 Spinal stenosis, lumbosacral region; Z20.822 Contact with and (suspected) exposure to COVID-19
CPT/HCPCS: 62323; 87635; 99152; J0702; J1100; J2250

== ENCOUNTER 2022-02-21 13:45 | Outpatient (CLI) | payer OTHER, SELFPAY ==
[2022-02-21] VITALS (9 sets, daily range): BP systolic 144–170; BP diastolic 77–101; PULSE 63–90; RESP 10–18; TEMP 36.1; O2SAT 98–100
--- NOTE | 2022-02-21 13:49 | DI.RAD.S_ITS ---
PROCEDURE: PAIN L/S TRANSFORAMINAL INJECT INDICATIONS: SPONDYLOSIS COMPARISON: [facility], , PAIN L/S TRANSFORAMINAL INJECT, 10/01/2018, 14:14. FINDINGS: Fluoroscopic spot filming was performed to verify placement of spinal needles at the L3-4 level(s), as labeled on the films. Appropriate location(s) of the needle tip(s) was confirmed by injection of iodinated contrast. IMPRESSION: Intraoperative fluoroscopic images transforaminal ALBERTO Dictated by: Anjum Villlaba M.D. on 02/21/2022 at 17:28 Approved by: Anjum Villalba M.D. on 02/21/2022 at 17:28
[2022-02-21] MEDS: MIDAZOLAM 2 MG/2 ML VIAL IV (15:27)
[2022-02-21] MEDS: IOPAMIDOL 15 ML VIAL 3 ML INJ (15:30)
[2022-02-21] MEDS: DEXAMETHASONE 10 MG/ML VIAL 20 MG INJ (15:31)
[2022-02-21] MEDS: BETAMETHASONE 30 MG/5 ML MDV 6 MG INJ (15:31)
[2022-02-21] MEDS: BUPIVACAINE 0.25% (PF) VIAL 2 ML INJ (15:31)
--- NOTE | 2022-02-21 15:45 | P.PCN_ITS ---
Date/Time/Diagnoses Date of procedure: 02/21/22 Time of procedure: 15:45 Pre-procedure diagnosis: 1. FORAMINAL STENOSIS WITH LE SYMPTOMS Post-procedure diagnosis: same Procedure Notes Procedure: 1. FLUOROSCOPICALLY GUIDED CONTRAST CONTROLLED TRANSFORAMINAL EPIDURAL STEROID INJECTION - LEFT L3/4 TFESI Indications: Jared is referred by Dr. Grant for treatment of Foraminal Stenosis with left LE Symptoms Physician: Josiah Ybarra Total Fluoroscopy time (seconds): 10 Total sedation minutes: 12 Complications: none Procedure in detail & Post-procedure care: FINDINGS Foraminal Nerve Root Compression secondary to disc disease and facet hypertrophy DESCRIPTION OF PROCEDURE Following review of allergy and review of potential side effects and complications, including, but not necessarily limited to, infection, allergic reaction, local tissue breakdown, stroke, temporary or permanent nerve injury, paralysis, and possible , the patient indicated that the patient understood and agreed to proceed. An informed consent document was signed by the patient, witnessed by a nurse, and placed in the patient's chart. Additionally, other treatment options including medications, modalities, and physical therapy were reviewed with the patient. After review of previous anaesthesic history and IV conscious sedation the patient was deemed safe to proceed with today?s procedure with IV conscious sedation as ASA class II designation. Safety time-out was performed to confirm patient ID, procedure to be performed and site of procedure. IV sedation was accomplished with a combination of 2mg of Versed was administered by the RN after DO order, titrated to patient comfort during the course of the procedure while the patient remained responsive to all verbal commands In the prone position following sterile prep and drape of the lumbar region, the left L3/4 posterior neuroforamen was identified fluoroscopically. The skin was anesthetized via a 25-gauge 1.5-inch needle with 1% lidocaine solution. At this point, a 25-gauge 3.5-inch spinal needle was atraumatically introduced and advanced under fluoroscopic guidance through the posterior left L3/4 neuroforamen to approximately the anterior aspect of the canal. Depth was confirmed on lateral view. Following negative aspiration, injection of approximately 1.5 cc of Isovue 200 under live fluoroscopy in the AP view confi rmed excellent flow along the nerve root, into the epidural space without vascular or intrathecal uptake observed Radiological data, including multiple fluoroscopic views of the lumbosacral spine, reveal a spinal needle at the left L3/4 posterior neuroforamen. Subsequent views show flow of contrast material flowing superiorly and inferiorly along the nerve root confirming epidural flow. Subsequently, a test dose of 1.5cc of 1% lidocaine solution was administered and patient was observed for two minutes for signs or symptoms of complications, including abdominal pain, shortness of breath, bilateral upper or lower extremity weakness, nausea and vomiting, prior to steroid injection. At this point, a total of 3cc or 20mg of dexamethasone and 6mg betamethasone was injected without incident. The patient tolerated the procedure well without signs or symptoms of complications prior to transfer to the recovery area continued monitoring without incident. The patient was then transferred to the recovery area where they were observed for an appropriate time after the injection. The patient reported a VAS score of 7 prior to the procedure and a post-procedure VAS of 0. POST OP INSTRUCTIONS The patient was provided a Pain Log to continue to record their response to the target-specific procedure prior to follow-up visit with their referring physician. Additionally, specific post-injection care instructions and a contact number to our office were provided if concerns arise regarding possible complications associated with the procedure are suspected.
== END 2022-02-21 16:10 | disposition home or self-care (01) ==
PROVIDERS: PCP Family Medicine; Referring Provider Physical Medicine & Rehabilitation; Visit Provider Physical Medicine & Rehabilitation
DX: M48.061 Spinal stenosis, lumbar region without neurogenic claudication (principal); M51.16 Intervertebral disc disorders with radiculopathy, lumbar region
CPT/HCPCS: 64483; 99152; J0702; J1100; J2250; J3490

== ENCOUNTER 2022-05-30 10:38 | Outpatient (CLI) | payer OTHER, SELFPAY ==
[2022-05-30] VITALS (10 sets, daily range): BP systolic 142–166; BP diastolic 69–94; PULSE 68–97; RESP 16–19; TEMP 36.7; O2SAT 96–98
--- NOTE | 2022-05-30 10:39 | DI.RAD.S_ITS ---
PROCEDURE: PAIN L/S MED/LAT N RFA BILAT INDICATIONS: SPONDYLOSIS COMPARISON: [facility], XA, PAIN L/S TRANSFORAMINAL INJECT, 02/21/2022, 16:31. [facility], XA, PAIN L/S MED/LAT N RFA BILAT, 10/12/2019, 7:50. FINDINGS: Fluoroscopic spot filming was performed to verify placement of spinal needles on both sides at the L3 and L4 levels, as labeled on the films. IMPRESSION: Images during rhizotomy within normal limits. Dictated by: Kalin Phelps M.D. on 05/30/2022 at 12:36 Approved by: Kalin Phelps M.D. on 05/30/2022 at 12:37
[2022-05-30] MEDS: MIDAZOLAM 2 MG/2 ML VIAL IV (12:00)
[2022-05-30] MEDS: LIDOCAINE 1% (PF) 5 ML INJ (12:07)
[2022-05-30] MEDS: BUPIVACAINE 0.5% (PF) 30 ML VIAL 5 ML INJ (12:08)
--- NOTE | 2022-05-30 12:40 | P.PCN_ITS ---
Date/Time/Diagnoses Date of procedure: 05/30/22 Time of procedure: 12:40 Pre-procedure diagnosis: 1. RECALCITRANT FACET ARTHROPATHY Post-procedure diagnosis: same Procedure Notes Procedure: 1. BILATERAL L3, L4 MEDIAL BRANCH RADIOFREQUENCY NEUROTOMY Indications: Jared is referred by Dr. Grant for treatment of facet arthropathy. Physician: Josiah Ybarra Total sedation minutes: 33 Complications: none Procedure in detail & Post-procedure care: DESCRIPTION OF PROCEDURE Bilateral L3, L4 and L5 medial branch radiofrequency neurotomy The patient is well known to this clinic having undergone previous facet injections with good but temporary relief. The patient has experienced appropriate, concordant relief with previous facet and median branch blocks but the patient's pain has been recalcitrant to further conservative measures. Therefore, based upon the patient's relief and persistent symptoms, the patient is considered an appropriate candidate for facet rhizotomy. All of the patient's questions regarding the risks versus benefits of the procedure, including, but not limited to, bleeding, infection, temporary as well as lasting nerve injury, paralysis, stroke, and , as well treatment alternatives were answered to satisfaction. After obtaining informed consent, denial of pertinent drug allergies, as well as being made aware of the potential risks of bleeding, infection, spinal cord trauma, paralysis, temporary and permanent nerve damage, seizure, stroke, and possible , the patient was brought to the fluoroscopy suite and positioned prone on the fluoroscopy table. The lumbar region was prepped with Betadine and covered with a fenestrated drape in the usual sterile fashion. Appropriate monitors applied including pulse oximeter, pulse, and blood pressure for regular monitoring throughout the procedure. After review of previous anaesthesic history and IV conscious sedation the patient was deemed safe to proceed with today's procedure with IV conscious sedation as ASA class II designation. Safety time-out was performed to confirm patient ID, procedure to be performed and site of procedure. IV sedation was accomplished with a combination of 3mg of Versed administered by the RN after DO order, titrated to patient comfort during the course of the procedure while the patient remained responsive to all verbal commands. After local infiltration using 1% lidocaine, under fluoroscopic guidance, a 10- cm RF insulated Venom needle with a 10-mm active tip was positioned parallel to the junction of the right the superior articulating process where the L4 medial branch resides. Needle placement was confirmed with motor stimulation of .5v on the right which produced local stimulation without radicular component. The stimulation was then increased to 2v with, once again, only local multifidus stimulation without radicular component. The needle was then removed and the identical procedure was performed along the length of the right L3 medial branch with motor stimulation at .7v on the right. The medial branches were then anesthetised with 0.5% marcaine. This was then followed by two discreet lesions performed at 80 degrees Celsius for 90 seconds each. The identical procedures were repeated on the left. The patient tolerated the procedure well without signs or symptoms of complications prior to transfer to the recovery area continued monitoring without incident. The patient was then transferred to the recovery area where they were observed for an appropriate period of time after the injection. The patient reported a VAS score of 9 prior to the procedure and a post-procedure VAS of 0. POST OP INSTRUCTIONS The patient was provided a Pain Log to continue to record the patient's response to the target-specific procedure prior to the patient's follow-up visit with the referring physician. Additionally, specific post-injection care instructions and a contact number to our office were provided if concerns arise regarding possible complications associated with the procedure are suspected.
== END 2022-05-30 12:50 | disposition home or self-care (01) ==
PROVIDERS: PCP Family Medicine; Referring Provider Physical Medicine & Rehabilitation; Visit Provider Physical Medicine & Rehabilitation
DX: M47.816 Spondylosis without myelopathy or radiculopathy, lumbar region (principal)
CPT/HCPCS: 64635; 64636; 99152; 99153; J2250